=== PATIENT | female | born 1985 | race Caucasian/White ===

== ENCOUNTER 2017-11-25 04:53 | Day surgery (SDC) | payer OTHER ==
[2017-11-18 13:09] VITALS: BMI 25.7
[2017-11-25] MEDS ORDERED: SUCCINYLCHOLINE CHLORIDE 200 MG/10 ML VIAL ONE (07:50)
[2017-11-25] MEDS ORDERED: fentaNYL CITRATE 250 MCG/5 ML VIAL ONE (07:50)
[2017-11-25] MEDS ORDERED: ROCURONIUM BROMIDE 50 MG/5 ML VIAL ONE (07:50)
[2017-11-25] MEDS ORDERED: PROPOFOL 20 ML ONE (07:50)
[2017-11-25] MEDS ORDERED: MIDAZOLAM HCL 2 MG/2 ML SINGLE DOSE VIAL ONE (07:51)
[2017-11-25] MEDS ORDERED: ceFAZolin SODIUM 1 GM VIAL ONE (07:56)
[2017-11-25] MEDS ORDERED: DEXAMETHASONE SOD PHOSPHATE 4 MG/1 ML VIAL ONE (07:56)
[2017-11-25] MEDS ORDERED: LIDOCAINE HCL/PF 2% SDV 5ML VIAL ONE (07:56)
--- NOTE | 2017-11-25 08:07 | HP ---
Past Medical History - Primary Care Physician PCP:: Donny Victoria - Admission Chief Complaint: sterlization History of Present Illness: 32 yo f wants sterilizationsaware procedure is permenant, has small failure risk ,and risk of ectopic, ulternatives discussed with patient, risks associated with BTL has discussed with patient in detail , for laparoscopic bilateral tubal cauterization and removal of IUD History Source: Patient Limitations to Obtaining History: No Limitations - Past Surgical History Hx Myomectomy: No Hx Transabdominal Cerclage: No - Smoking History Smoking history: Never smoked Have you smoked in the past 12 months: No - Alcohol/Substance Use Hx Alcohol Use: No - Social History Usual Living Arrangement: Yes: With Spouse History of Recent Travel: No Home Medications - Allergies Allergies/Adverse Reactions: Allergies Allergy/AdvReac Type Severity Reaction Status Date / Time No Known Allergies Allergy Verified 11/25/17 06:30 - Home Medications Home Medications: Ambulatory Orders NK [No Known Home Medication] 11/18/17 Review of Systems - Review of Systems Constitutional: reports: No Symptoms Eyes: reports: No Symptoms HENT: reports: No Symptoms Neck: reports: No Symptoms Cardiovascular: reports: No Symptoms Respiratory: reports: No Symptoms Gastrointestinal: reports: No Symptoms Genitourinary: reports: No Symptoms Breasts: reports: No Symptoms Reported Musculoskeletal: reports: No Symptoms Integumentary: reports: No Symptoms Endocrine: reports: No Symptoms Hematology/Lymphatic: reports: No Symptoms Psychiatric: reports: No Symptoms Physical Exam-[employer] Vital Signs: Vital Signs Temperature 98.3 F 11/25/17 06:32 Pulse Rate 76 11/25/17 06:32 Respiratory Rate 16 11/25/17 06:32 Blood Pressure 114/70 11/25/17 06:32 O2 Sat by Pulse Oximetry (%) 98 11/25/17 06:32 Constitutional: Yes: Well Nourished, No Distress, Calm Eyes: Yes: WNL, Conjunctiva Clear, EOM Intact HENT: Yes: WNL, Atraumatic, Normocephalic Neck: Yes: WNL, Supple, Trachea Midline Cardiovascular: Yes: WNL, Regular Rate and Rhythm Respiratory: Yes: WNL, Regular, CTA Bilaterally Gastrointestinal: Yes: WNL ...Rectal Exam: Yes: WNL Renal/: Yes: WNL Vaginal Exam: Yes: Normal Cervix: Yes: Normal Uterus: Yes: Normal Adnexa: Not Palpable: Left, Right Breast(s): Yes: WNL Musculoskeletal: Yes: WNL Extremities: Yes: WNL Edema: No Integumentary: Yes: WNL Neurological: Yes: WNL, Alert, Oriented ...Motor Strength: WNL Psychiatric: Yes: WNL, Alert, Oriented Problem List - Problem (1) Admission for sterilization Code(s): Z30.2 - ENCOUNTER FOR STERILIZATION Assessment/Plan laparoscopic bilateral tubal fulguration ,with removal of IUD
[2017-11-25] MEDS ORDERED: NEOSTIGMINE METHYLSULFATE 0.5 MG/ML - 10 ML MDV ONE (08:40)
[2017-11-25] MEDS ORDERED: IBUPROFEN 600 MG TABLET (FP) PO PRN (08:50)
[2017-11-25] MEDS ORDERED: IBUPROFEN 800 MG/8 ML IJ IVPB PRN (08:50)
[2017-11-25] MEDS ORDERED: ONDANSETRON 4 MG/2 ML VIAL IVPUSH PRN (08:50)
[2017-11-25] MEDS ORDERED: oxyCODONE HCL 5 MG TABLET PO PRN ×2 (08:50→09:36)
[2017-11-25] MEDS ORDERED: ELECTROLYTE-148 SOLN 1,000 ML IV SCH (09:00)
[2017-11-25] MEDS ORDERED: LACTATED RINGERS SOLUTION 1,000 ML IV SCH (09:45)
--- NOTE | 2017-11-25 09:54 | OP ---
DATE OF OPERATION: 11/25/2017 PREOPERATIVE DIAGNOSIS: Voluntary sterilization. POSTOPERATIVE DIAGNOSIS: Voluntary sterilization. PROCEDURE: Removal of intrauterine device and laparoscopic bilateral tubal cauterization. SURGEON: Donny Victoria MD ANESTHESIA: General. ANESTHESIOLOGIST: Otto Shelton MD ESTIMATED BLOOD LOSS: Minimal. OPERATION: Patient was taken to the operating room under adequate general anesthesia. In dorsal lithotomy position, examination under anesthesia revealed external genitalia to be normal. Vagina was normal. Cervix was clean, no gross lesion. IUD string was found. Adnexa, no masses were palpable. Then, with a weighted speculum in the vagina, anterior lip of the cervix was grasped with a single-loop tenaculum, and with a Sariah clamp, IUD string was pulled and removed in its entirety and easily. Then, Hulka was introduced into the uterine cavity. Armstrong was inserted. Patient was prepped and draped for a pelviscopy. A small infraumbilical skin incision was made. Veress needle was introduced. Pneumoperitoneum was established. A 5-mm trocar was introduced through the umbilical area, and then, the scope was introduced. Visualization of the upper abdomen showed it was normal. Pelvic organs showed both ovaries and tubes were normal. Uterus normal sized. No cul-se-sac adhesion. Bladder was normal. Then, under direct vision, a 5-mm trocar was introduced through the suprapubic area, and then bipolar cautery was introduced. Then, right tube was grasped with bipolar cautery, cauterized in 3 portions, 2-cm apart. The same procedure repeated for opposite tube. Visualization of both tubes showed adequate cauterization. No active bleeding was seen. Then, instruments were withdrawn. Abdomen was emptied of all the gases. Then, suprapubic and infraumbilical skin incisions first closed with interrupted sutures of 2-0 Vicryl, and then, skin was closed with Dermabond glue. Patient tolerated the procedure well, left the OR in good condition. Jose [id number]
[2017-11-25 10:25] VITALS: TEMP 97.7
[2017-11-25 10:43] VITALS: PULSE 72
[2017-11-25 12:01] VITALS: BP 111/69
--- NOTE | 2017-11-26 09:12 | PATH ---
Surgical Pathology Report Patient Name: RAYO DINH Med. Rec. #: [id number] /Age/Gender: 1985 (Age: 32) / F Account: [id number] Location: [facility] Taken: 11/25/2017 Received: 11/25/2017 Reported: 11/26/2017 Physicians: Donny Victoria M.D. Specimen(s) Received IUD Clinical History Sterilization Final Diagnosis INTRAUTERINE DEVICE (IUD), REMOVAL: INTRAUTERINE DEVICE (IUD). MACROSCOPIC DIAGNOSIS. Electronically Signed Breana Vazquez M.D. Gross Description Received in formalin labeled "IUD," is a 3.2 cm in length T-shaped device with attached string, consistent with an IUD. No soft tissue is present. No sections are submitted, gross only. /11/25/2017 saudi11/25/2017
== END 2017-11-25 11:55 | disposition home or self-care (01) ==
LOC: JASU-SURG 04:53
PROVIDERS: ATTEND Obstetrics & Gynecology
PROC: 0U574ZZ Destruction of Bilateral Fallopian Tubes, Percutaneous Endoscopic Approach (ICD-10-PCS; principal; 2017-11-25 08:00)
PROC: 0UPDXHZ Removal of Contraceptive Device from Uterus and Cervix, External Approach (ICD-10-PCS; 2017-11-25 08:00)
DX: Z30.2 Encounter for sterilization (principal); Z30.432 Encounter for removal of intrauterine contraceptive device
CPT/HCPCS: 84703; 88300-TC; 94760